=== PATIENT | male | born 1995 | race Caucasian/White ===

== ENCOUNTER 2017-05-08 16:58 | Emergency (ER) | payer BC ==
[2017-05-08 17:35] VITALS: BP 120/60
--- NOTE | 2017-05-08 17:46 | UC ---
Skin Complaint HPI - HPI Summary HPI Summary: 21 year old male presents with left wrist abrasion/wound. - History of Current Complaint Chief Complaint: [facility]CS[facility] Time Seen by Provider: 05/08/17 17:45 Stated Complaint: LEFT WRIST SKIN COMPLAINT Hx Obtained From: Patient Onset/Duration: Sudden Onset Skin Exposure Onset/Duration: Days Ago Onset Severity: Moderate Current Severity: Moderate Pain Scale Used: 0-10 Numeric - 5 - Allergy/Home Medications Allergies/Adverse Reactions: Allergies Allergy/AdvReac Type Severity Reaction Status Date / Time No Known Allergies Allergy Verified 05/08/17 17:34 Home Medications: Home Medications Silver Sulfadiazine 1%* [SILVadine 1%*] 1 applic TOPICAL BID 05/08/17 [History Confirmed 05/08/17] Review of Systems Constitutional: Negative Skin: Other - left wrist wound Eyes: Negative ENT: Negative Respiratory: Negative Cardiovascular: Negative Gastrointestinal: Negative Genitourinary: Negative Motor: Negative Neurovascular: Negative Musculoskeletal: Negative Neurological: Negative Psychological: Negative All Other Systems Reviewed And Are Negative: Yes PMH/Surg Hx/FS Hx/Imm Hx Previously Healthy: Yes - Surgical History Surgical History: Yes Surgery Procedure, Year, and Place: shoulder x 3 - Social History Alcohol Use: None Substance Use Type: None Smoking Status (MU): Never Smoked Tobacco - Immunization History Most Recent Influenza Vaccination: no Physical Exam Triage Information Reviewed: Yes Vital Signs: Initial Vital Signs Temp 36.6 C 05/08/17 17:30 Pulse 77 05/08/17 17:30 Resp 16 05/08/17 17:30 BP 120/60 05/08/17 17:30 Pulse Ox 100 05/08/17 17:30 Vital Signs Reviewed: Yes Eye Exam: Normal ENT Exam: Normal Dental Exam: Normal Neck exam: Normal Neck: Positive: 1 Respiratory Exam: Normal Cardiovascular Exam: Normal Abdominal Exam: Normal Musculoskeletal Exam: Normal Neurological Exam: Normal Psychological Exam: Normal Skin: Positive: Other - left wrist wound Course/Dx - Diagnoses Provider Diagnoses: left wrist wound/abrasion Discharge - Discharge Plan Condition: Stable Disposition: HOME Prescriptions: DOXYcycline CAP(*) [DOXYcycline 100MG CAP(*)] 100 mg PO BID #20 cap Mupirocin 2% OINT* [Bactroban 2 % Oint*] 1 applic TOPICAL BID #1 tube Patient Education Materials: MRSA (Methicillin-Resistant Staphylococcus Aureus ) (ED), Cellulitis (ED), Acute Rash (ED) Referrals: No Primary Care Phys,NOPCP [Primary Care Provider] -
--- NOTE | 2017-05-10 14:59 | UC ---
Progress - Progress Note Progress Note: woundcx neg, gram stain neg. nml estuardo can d/c abx/doxycycline
== END 2017-05-08 18:01 | disposition home or self-care (01) ==
LOC: UCCORT 16:58
DX: S60.812A Abrasion of left wrist, initial encounter (principal); X58.XXXA Exposure to other specified factors, initial encounter; Y92.9 Unspecified place or not applicable
CPT/HCPCS: 87070; 87205; 99202; G0463